=== PATIENT | male | born 1945 | race Caucasian/White ===

== ENCOUNTER 2016-12-22 09:30 | Inpatient (IN) ==
[~2016-12-22 09:30] MED LIST: ACETAMINOPHEN 500 MG TABLET PO ONE; CEFAZOLIN 1 G INJECTION IVP ONE; EPINEPHrine 0.25 MG, BUPIVACAINE 0.25% PF 30 ML, MORPHINE SULFATE 15 MG, KETOROLAC INJ ... OPSITE ONE; FAMOTIDINE PB 20 MG/50 ML BAG IV ONE; LIDOCAINE 1% (10mg/ml) 2mL INJ PF SDV ID ONE; METOCLOPRAMIDE 10mg/2ml INJECTION IVP ONE; NOZIN NASAL SWAB NAS ONE; ONDANSETRON 4 MG/2 ML INJECTION IVP ONE; VANCOMYCIN 1,000 MG INJECTION IAR ONE
--- NOTE | 2016-12-22 10:46 | History & Physical Update ---
- History and Physical Update Date: 12/22/16 Update: I evaluated this patient and found no changes in the history and clinical exam findings. The treatment plan and recommendations are also unchanged from the previous documentation.
[2016-12-22 10:47] VITALS: BMI 34.7
[2016-12-22] MEDS: LR 1,000 ML IV SCH ×3 (10:49→14:00)
[2016-12-22] MEDS ORDERED: VANCOMYCIN 1,000 MG INJECTION ONE (11:18)
--- NOTE | 2016-12-22 11:26 | Anesthesia Preoperative Report ---
Anesthesia Preoperative Record - Date and Time Date: 12/22/16 Preoperative Diagnosis: Rt TKA M17.11 Proposed Procedure: Total Knee Arthroscopy NPO Since Date: 12/22/16 NPO Since Time: 05:00 Allergies/Adverse Reactions: Allergies Allergy/AdvReac Type Severity Reaction Status Date / Time clonidine Allergy Severe Airway Verified 12/22/16 10:09 Obstruction - Vital Signs Vital Signs: Temperature 97.8 F 12/22/16 10:13 Pulse Rate 75 12/22/16 10:25 Respiratory Rate 16 12/22/16 10:13 Blood Pressure 163/91 H 12/22/16 10:13 Pulse Oximetry 93 12/22/16 10:13 Height and Weight: Height 1.73 m Weight 103.7 kg Body Mass Index 34.7 - Medications Inpatient Medications: Current Medications Lactated Ringer's (Lactated Ringers) 1,000 mls @ 50 mls/hr IV .Q20H NEVAEH Last Admin: 12/22/16 10:49 Dose: 50 mls/hr Epinephrine HCl 0.25 mg/Bupivacaine HCl 30 ml/Morphine Sulfate 15 mg/Ketorolac Tromethamine 60 mg/Sodium Chloride 65.25 mls @ 1 mls/hr OPSITE INTRAOP ONE PRN Reason: Protocol Stop: 12/25/16 01:14 Miscellaneous Medication (Tranexamic 1gm/Ns 100 Irr Mix) 100 ml IR O ONE Stop: 12/22/16 14:37 Home Medications: Home Medications Medication Instructions Recorded Confirmed Type Zyloprim (Allopurinol) 300 mg 300 mg PO HS #0 tab 09/21/16 12/22/16 History tablet aspirin 325 mg tablet 325 mg PO DAILY tab 09/21/16 12/21/16 History calcium carbonate 600 mg calcium 600 mg PO HS tab 09/21/16 12/22/16 History (1,500 mg) tablet flecainide 100 mg tablet 100 mg PO BID tab 09/21/16 12/22/16 History hydrochlorothiazide 50 mg tablet 50 mg PO DAILY tab 09/21/16 12/22/16 History levothyroxine 125 mcg tablet 1 tab PO DAILY #0 tab 09/21/16 12/22/16 History metformin 1,000 mg tablet 1,000 mg PO BID 09/21/16 12/22/16 History multivitamin tablet 1 tab PO HS 09/21/16 12/22/16 History omega-3 fatty acids 1,000 mg 3,000 mg PO BID cap 09/21/16 12/21/16 History capsule Atorvastatin [Lipitor] 10 mg PO HS 10/16/16 12/22/16 History Canagliflozin [Invokana] 100 mg PO HS 11/23/16 12/22/16 History Finasteride [Proscar] 5 mg PO HS 11/23/16 12/22/16 History Lisinopril [Prinivil] 20 mg PO DAILY 12/17/16 12/22/16 History Naproxen Sod/Diphenhydramine 1 each PO HS 12/17/16 12/22/16 History [Aleve Pm Caplet] Is Patient on Beta Rahul?: No - Medical History Cardiovascular: Reports: Arrhythmia (history atrial fib), Hypertension, High Cholesterol Renal/Endocrine: Reports: Diabetes Mellitus Type 2, Thyroid Disease - Surgical History Cardiac Surgeries/Treatments: Reports: Other (CHEMICAL INDUCED STRESS TEST ; NEGATIVE) Anesthesia Reactions: None Hx Family Anesthesia Reaction: No History of Motion Sickness: No - Social History Smoking Status: Former smoker Hx Chewing Tobacco Use: No Second Hand Exposure: No Substance Use Type: does not use Alcohol Intake Frequency: does not drink - Pertinent Findings Laboratory: CBC and BMP 12/22/16 10:09 BMP 12/22/16 10:09 Sodium 145 H Potassium 4.0 Chloride 105 Carbon Dioxide 27 BUN 22.0 H Creatinine 0.9 Glucose 146 H Calcium 10.1 EKG Rhythm: Normal Sinus Rhythm - Physical Exam Respiratory Exam: Present: lungs clear Cardiovascular Exam: Present: regular rate and rhythm, no murmur - Airway Assessment Mallampati Score: I TMD: 3 Fingerbreadths Neck Extension: good Teeth: chipped teeth/crowns Overall Assessment: no airway concerns - ASA ASA Score: 3 - Plan Anesthesia: General TIVA Regional/Trunk Block: Spinal Peripheral Nerve Block: Saphenous-Right - Discussion Discussion: Discussed risks/options/alternatives of anesthesia and questions answered. Patient consents. Nursing pain assessment noted. Present for Discussion: spouse, family member Attestation Statement: Prior to the delivery of any anesthetic medication, I examined the patient, developed the plan, obtained the patient's consent and discussed the risk and benefits of the procedure with the patient/guardian. - Additional Information Seen by Anesthesia: Yes
[2016-12-22] MEDS ORDERED: PROPOFOL 500 MG/50 ML VIAL IV ONE (12:15)
[2016-12-22] MEDS ORDERED: EPHEDRINE 50mg/ml INJECTION ONE (12:34)
[2016-12-22] MEDS ORDERED: SALINE FLUSH 10ml SYRINGE ONE (12:34)
[2016-12-22] MEDS ORDERED: PROPOFOL 60 ML ONE (13:18)
--- NOTE | 2016-12-22 14:16 | Operative Note ---
- Procedure Side: right Preoperative Diagnosis: knee primary DJD Postoperative Diagnosis: Same as preoperative diagnosis. Operation: total knee arthroplasty Surgeon: Nasir Boothe MD Green Meat Grader: Sumeet Matt Complications: None. Regional/Trunk Block: Spinal Peripheral Nerve Block: Saphenous-Right Estimated Blood Loss: See Anesthesia Record. Fluids: Please see Anesthesia Record. Description of Procedure: Mr. Cohen and his right knee were identified and marked in the preoperative holding area. He was brought back to the operating suite after a saphenous nerve block was placed in the preoperative holding area. Spinal anesthetic was administered and he was placed supine on the operating table. The right lower extremity was prepped and draped in my normal sterile fashion. Timeout was performed. The [employer] robot was used during the surgery. He has fixed varus deformity with no flexion contracture. A standard anterior midline incision followed by medial parapatellar arthrotomy was performed. Anterior fat pad and meniscus were removed. The patella was resurfaced to a size 35. I then placed a tibial array to 2 poke hole incisions in the mid tibia just medial to the crest. The pins were placed bicortically. I then placed a second femoral array again using bicortical pins in the distal femoral metaphysis medially. Checkpoints were then placed both in the femur and the tibia. The bone was then registered with the [employer] robot. Osteophytes were removed and gaps were captured both 90 and 0 with correction. He was tight medially in extension and this was corrected with [employer] software to give 18 mm gaps throughout. The [employer] robotic arm was then used to assist with the bone cuts. Posterior osteophytes and remaining meniscus were removed. Trial components were placed. We used a 4 femur and a 5 tibia with a 11 mm spacer. He tracked well and was well balanced throughout range of motion. The leg was exsanguinated and the tourniquet inflated to 250 mmHg. The bone was prepared for cementing and components were cemented into place and allowed to cure in extension. The tourniquet was let down and hemostasis obtained with electrocautery. The knee was ranged one more time to ensure good stability, balance and patellar tracking. 1 g of vancomycin powder was then placed into the knee joint. The capsulotomy was then closed with #1 Vicryl. I then left my registrar assistant to close the subcutaneous tissue with 2-0 Vicryl. Running 4-0 Monocryl will be used in the subcuticular layer. Dermabond will be used on the skin followed by sterile dressing. After drapes are removed patient will be taken to recovery room under the care of anesthesia.
[2016-12-22] MEDS ORDERED: TRANEXAMIC ACID 1gm/NS 100ml IRR MIX IR ONE (14:36)
[2016-12-22] MEDS ORDERED: ROPIVACAINE 0.5% (5mg/ml) 30ml INJ ONE (14:36)
--- NOTE | 2016-12-22 15:03 | Anesthesia Procedure Note ---
Peripheral Nerve Blockade - Procedure Physician: Braden Boothe MD Date: 12/22/16 Surgical Procedure: right TKA Discussion: Discussed risks/options/alternatives of anesthesia and questions answered. Patient consents. Nursing pain assessment noted. Block Start: 14:53 Block Stop: 14:57 Blocked Employed: Adductor Canal Indication: Post-Operative Pain Approach: Right Side Confirmed Position: Supine Patient: Consent, Risks/Benefits Discussed, Informed, Post Block Act. Discussed IV Sedation: No Initial Vital Signs: Temperature 97.8 F 12/22/16 10:13 Temperature Source Oral 12/22/16 10:13 Pulse Rate 73 12/22/16 10:13 Respiratory Rate 16 12/22/16 10:13 Blood Pressure 163/91 H 12/22/16 10:13 Blood Pressure Mean 115 12/22/16 10:13 Blood Pressure Position Sitting 12/22/16 10:13 Pulse Oximetry 93 12/22/16 10:13 Oxygen Delivery Method 12/22/16 10:13 Post Vital Signs: Temperature 97.8 F 12/22/16 10:13 Pulse Rate 75 12/22/16 10:25 Respiratory Rate 16 12/22/16 10:13 Blood Pressure 163/91 H 12/22/16 10:13 Pulse Oximetry 93 12/22/16 10:13 Initial Pain Pain Score: 0 Post Block Pain Score: 0 Prep: Chlorhexadine/ETOH Ultrasound Used?: Yes - Injectate Ropivacaine (%): 0.5 Ropivacaine (mL): 20 Injection: Injection made incrementally with constant monitoring and aspiration every ml
--- NOTE | 2016-12-22 15:57 | Anesthesia Postoperative Note ---
- Date and Time Date: 12/22/16 Time: 15:56 - Status Patient Participated in Evaluation: Patient Participated in Person Vital Signs: Temperature 97.4 F 12/22/16 14:48 Pulse Rate 71 12/22/16 15:25 Respiratory Rate 19 12/22/16 15:25 Blood Pressure 118/59 12/22/16 15:25 Pulse Oximetry 91 12/22/16 15:25 Respiratory Function: Airway Patent Cardiovascular Function: Regular Pulse EKG Rhythm: Normal Sinus Rhythm Mental Status: Alert and Oriented Pain Intensity: 0 Hydration: Taking PO Fluids Complications During Recover: None Apparent - Follow-Up Instructions Instructions: Per Surgeon
--- NOTE | 2016-12-22 15:59 | XRay Report ---
Indication: postoperative image PROCEDURE: XR knee RT 2V: Encounter: Initial Comparison: November 23, 2016 Findings: Postoperative changes of right total knee replacement are seen. There is expected postoperative subcutaneous gas. No evidence of hardware failure or acute fracture. No retained radiopaque surgical instruments or sponges. Overlying material causing artifact. Impression: New right total knee prosthesis without evidence of immediate complication. .
[2016-12-22] MEDS ORDERED: NOZIN NASAL SWAB NAS ONE (16:05)
[2016-12-22] MEDS ORDERED: Oxycodone *IR* 5 MG TABLET PO PRN (16:05)
[2016-12-22] MEDS ORDERED: DiphenhydrAMINE 50 MG/ML INJECTION IVP PRN (16:05)
[2016-12-22] MEDS ORDERED: LORazepam 1 MG TABLET PO PRN (16:05)
[2016-12-22] MEDS ORDERED: ONDANSETRON 4 MG/2 ML INJECTION IVP PRN (16:05)
[2016-12-22] MEDS ORDERED: DiphenhydrAMINE 25 MG CAPSULE PO PRN (16:05)
[2016-12-22] MEDS: NS 1,000 ML IV SCH (16:09)
[2016-12-22] MEDS: ACETAMINOPHEN 325 MG TABLET PO SCH ×2 (17:26→20:20)
[2016-12-22] MEDS: CEFAZOLIN 2 G in NS 100 ML IV SCH (20:12)
[2016-12-22] MEDS: DOCUSATE SODIUM 100 MG CAPSULE PO SCH (20:20)
[2016-12-22] MEDS: ASPIRIN *EC* 325 MG TABLET PO SCH (20:21)
[2016-12-22] MEDS: NOZIN NASAL SWAB NAS SCH ×2 (20:49→22:08)
[2016-12-22] MEDS: INSULIN ASPART 100unit/ml INJECTION SQ PRN (20:49)
[2016-12-22] MEDS: FLECAINIDE 100 MG TABLET PO SCH (20:49)
[2016-12-22] MEDS ORDERED: CALCIUM CARBONATE 600 MG TABLET PO SCH (21:00)
[2016-12-22] MEDS ORDERED: SENNOSIDES 8.6 MG TABLET PO SCH (21:00)
[2016-12-22] MEDS ORDERED: ATORVASTATIN 20 MG TABLET PO SCH (21:00)
[2016-12-22] MEDS ORDERED: FINASTERIDE 5 MG TABLET PO SCH (21:00)
[2016-12-22] MEDS ORDERED: ALLOPURINOL 300 MG TABLET PO SCH (21:00)
[2016-12-23] MEDS: NAPROXEN 220 MG TABLET PO PRN ×2 (00:19→10:10)
[2016-12-23] MEDS: CEFAZOLIN 2 G in NS 100 ML IV SCH (03:55)
[2016-12-23] MEDS: NOZIN NASAL SWAB NAS SCH ×2 (05:35→12:53)
[2016-12-23] MEDS ORDERED: LEVOTHYROXINE 125 MCG TABLET PO SCH (06:30)
[2016-12-23] MEDS: NS 1,000 ML IV SCH (06:54)
[2016-12-23 07:37] VITALS: RESP 18
[2016-12-23] MEDS ORDERED: METFORMIN 1,000 MG TABLET PO SCH (08:00)
--- NOTE | 2016-12-23 08:05 | Orthopedic Progress Note ---
Date: Subjective/Severity of Illness: Doing well, no complaints, pain is controlled. He denies CP or SOB, or calf pain. Orthopedic Objective PO Vital signs: Temperature 96.9 F 12/23/16 07:37 Pulse Rate 61 12/23/16 07:37 Respiratory Rate 18 12/23/16 07:37 Blood Pressure 143/87 H 12/23/16 07:37 Pulse Oximetry 95 12/23/16 07:40 Height and Weight: Height 5 ft 8 in Weight 240 lb 4.862 oz Body Mass Index 34.7 - Constitutional General Appearance: Present: alert, orientated x3, no acute distress - Cardiovascular Exam Present: pedal pulses intact Capillary Refill: < 2-3 Seconds - Abdominal Exam Absent: tenderness - Extremities Exam Extremities: Present: pulses intact - Knee Exam Knee Exam: Absent: painful ROM - Surgical Site Incision: clean, dry, intact, Mepilex dressing intact, dressing intact - Integumentary Exam Present: pink, warm, dry - Neurological Exam Present: intact to light touch, no deficits - Psychiatric Exam Present: normal affect - Wound Management Right Knee Primary Dressing: Mepilex - Labs Result Diagrams: 12/23/16 04:13 12/23/16 04:13 Abnormal lab results 12/22/16 12/23/16 12/23/16 Range/Units 10:09 04:13 04:13 Hgb 13.4 L (13.5-17.5) GM/DL Hct 39.7 L (41-53) % MPV 9.1 L (9.4-12.4) UM3 Sodium 145 H (134-144) MEQ/L BUN 22.0 H 23.0 H (9-20) MG/DL BUN/Creatinine Ratio 29 H (6-26) RATIO Glucose 146 H (75-110) MG/DL Calculated Osmolality 285 H (261-280) MOSM/KG Specimen Hemolysis 65 H (0-25) H & H 12/23/16 Range/Units 04:13 Hgb 13.4 L (13.5-17.5) GM/DL Hct 39.7 L (41-53) % Orthopedic Assessment and Plan (1) Primary osteoarthritis of right knee Status: Acute Assessment and Plan: Doing well continue pain control DM meds restarted likely discharge later today. - Anticoagulation Therapy Anticoagulation: ASA 325 mg PO BID x6 weeks Hospital Course Summary Disclaimer: The visit summary below is not to be considered part of the above Progress Note.
[2016-12-23] MEDS: ACETAMINOPHEN 325 MG TABLET PO SCH ×2 (08:10→12:53)
[2016-12-23] MEDS: DOCUSATE SODIUM 100 MG CAPSULE PO SCH (08:10)
[2016-12-23] MEDS: ASPIRIN *EC* 325 MG TABLET PO SCH (08:10)
--- NOTE | 2016-12-23 08:12 | Discharge Summary ---
Orthopedic Discharge Info Date of admission: 12/22/16 09:37 Primary care physician: Harpreet Calixto MD Attending Physician: Braden Boothe MD Consults: 12/22/16 10:08 Consult to Anesthesiology [CONS] Routine Consulting Provider: KRISTINE Hernandez Reason For Exam: Preoperative Assessment 12/22/16 16:05 Case Management Consult [CONS] Routine Reason For Exam: Discharge Planning DME-Walker [CONS] Routine Height: 5 ft 8 in Weight: 228 lb 9.91 oz Comment: change dressing in 2 weeks Total Joint Outpatient Therapy [CONS] Routine Comment: change dressing in 2 weeks - Discharge Diagnosis (1) Primary osteoarthritis of right knee Status: Acute - Procedures Procedures: Right TKA - Laboratory Result Diagrams: 12/23/16 04:13 12/23/16 04:13 Laboratory: Abnormal lab results 12/22/16 12/23/16 12/23/16 Range/Units 10:09 04:13 04:13 Hgb 13.4 L (13.5-17.5) GM/DL Hct 39.7 L (41-53) % MPV 9.1 L (9.4-12.4) UM3 Sodium 145 H (134-144) MEQ/L BUN 22.0 H 23.0 H (9-20) MG/DL BUN/Creatinine Ratio 29 H (6-26) RATIO Glucose 146 H (75-110) MG/DL Calculated Osmolality 285 H (261-280) MOSM/KG Specimen Hemolysis 65 H (0-25) H & H 12/23/16 Range/Units 04:13 Hgb 13.4 L (13.5-17.5) GM/DL Hct 39.7 L (41-53) % Orthopedic Discharge HPI - HPI Comments This patient was admitted for elective surgical tx of end stage degenerative joint disease that failed to respond to conservative treatment. Further details of this is found in the admission H&P. Orthopedic Hospital Course Hospital course: 12/23/16 08:10 After appropriate preoperative clearance and signing of operative consent, the patient was given IV antibiotics, according to orthopedic protocol. The patient was taken to the operating room and underwent elective joint arthroplasty. Following surgery, antibiotics were discontinued less than 24 hours according to joint protocol. Appropriate anticoagulants were initiated and SCDs added for DVT prevention. The dressing was clean, dry, and intact. Pain control was obtained via multimodal approach. Bowel motivation addressed with scheduled and PRN medications. Early mobilization was initiated through PT services. Discharge arrangements made by a collaborative effort between the patient and Case Management. Follow-up is scheduled in 2-3 weeks. Discharge instructions given by orthopedic providers and nursing staff at discharge. Discharge condition was good. Ongoing care required?: No - Postoperative Anemia patient received IVF, labs monitored daily, no intervention required, HGB drop- acceptable Discharge Plan - Med Rec/Dispo Referrals/Follow Up: Braden Boothe MD [Physician] - 01/13/17 10:30 am Duc Instructions: [facility] Postop Instructions Additional Instructions: [facility] ON 12/25/2016 AT 8:00AM FOR PHYSICAL THERAPY EVAL. PHONE [phone] Prescriptions: New Acetaminophen [Tylenol] 650 mg PO QID #100 tab Aspirin *EC* [Ecotrin] 325 mg PO BID #84 tab Oxycodone *Ir* [Roxicodone *Ir*] 5 - 15 mg PO Q3H PRN #60 tab PRN Reason: Breakthrough Pain Naproxen [Aleve] 440 mg PO BID PRN #84 tab PRN Reason: Pain Continue Canagliflozin [Invokana] 100 mg PO HS Atorvastatin [Lipitor] 10 mg PO HS Finasteride [Proscar] 5 mg PO HS Lisinopril [Prinivil] 20 mg PO DAILY Zyloprim (Allopurinol) 300 mg tablet 300 mg PO HS #0 tab calcium carbonate 600 mg calcium (1,500 mg) tablet 600 mg PO HS tab multivitamin tablet 1 tab PO HS omega-3 fatty acids 1,000 mg capsule 3,000 mg PO BID cap hydrochlorothiazide 50 mg tablet 50 mg PO DAILY tab metformin 1,000 mg tablet 1,000 mg PO BID levothyroxine 125 mcg tablet 1 tab PO DAILY #0 tab aspirin 325 mg tablet 325 mg PO DAILY tab flecainide 100 mg tablet 100 mg PO BID tab Discontinued Naproxen Sod/Diphenhydramine [Aleve Pm Caplet] 1 each PO HS - Disposition 01 Discharged Home, Self-Care
[2016-12-23] MEDS: FLECAINIDE 100 MG TABLET PO SCH (08:14)
[2016-12-23] MEDS ORDERED: LISINOPRIL 20 MG TABLET PO SCH (09:00)
[2016-12-23] MEDS ORDERED: POLYETHYL GLYCOL 3350 17gm PACKET PO SCH (09:00)
[2016-12-23] MEDS: INSULIN ASPART 100unit/ml INJECTION SQ PRN (10:46)
[2016-12-23 12:01] VITALS: BP 126/70; PULSE 79; TEMP 96.3; O2SAT 92
[2016-12-23] MEDS ORDERED: SENNOSIDES 8.6 MG TABLET PO PRN (15:11)
[2016-12-23] MEDS ORDERED: CANAGLIFLOZIN 100mg TABLET PO SCH (21:00)
[2016-12-24] MEDS ORDERED: BISACODYL 10 MG SUPPOSITORY RECTALLY SCH (20:00)
== END 2016-12-23 14:11 | disposition home or self-care (01) | DRG 470 ==
LOC: SRG 09:37
PROVIDERS: ADMIT Orthopaedic Surgery; ATTEND Orthopaedic Surgery